=== PATIENT | male | born 1945 | race Caucasian/White ===

== ENCOUNTER 2017-02-19 09:21 | Emergency (ER) | payer MEDICARE, OTHER ==
[2017-02-19 09:31] VITALS: BP 147/78
[2017-02-19] MEDS ORDERED: DIPHTH,PERTUSS(ACELL),TET VAC 0.5 ML VIAL IM ONE ×2 (09:37→09:38)
--- NOTE | 2017-02-19 10:07 | ERNOTE ---
Upper Extremity HPI - Narrative Date of Service: 02/19/17 - General Extremities Pain Location: forearm: left Time Seen by Provider: 02/19/17 09:34 Source: patient Exam Limitations: no limitations - Immun/Allergies/Home Medications Immunizations: IMMUNIZATION HX Immunizations Up to Date Yes History of Influenza Vaccine Yes Hx Pneumococcal Vaccination Yes Allergies/Adverse Reactions: Allergies Allergy/AdvReac Type Severity Reaction Status Date / Time Penicillins AdvReac Mild "INTOLERANC Verified 10/16/15 08:53 E" Home Medications: HOME MEDICATIONS Aspirin [Aspirin Enteric Coated] 81 mg PO Q2D 06/17/15 [Last Taken Unknown] Insul NPH Hu Rec/Ins Rg Hu Rec [Novolin 70/30] 21 units SQ QPM 06/17/15 [Last Taken Unknown] Insul NPH Hu Rec/Ins Rg Hu Rec [Novolin 70/30] 22 units SQ QAM 06/17/15 [Last Taken Unknown] Multivitamins [Multivitamin [place]] 1 cap PO DAILY 06/17/15 [Last Taken Unknown] Pravastatin Sodium [Pravachol] 20 mg PO HS 06/17/15 [Last Taken Unknown] metFORMIN HCL [Glucophage Xr] 1,000 mg PO BID 06/17/15 [Last Taken Unknown] Lisinopril [Zestril] 20 mg PO DAILY 09/28/15 [Last Taken Unknown] Clopidogrel Bisulfate [Plavix] 75 mg PO DAILY 10/16/15 [Last Taken Unknown] - History of Present Illness Narrative: Patient presents to the ED for a bleeding wound on his left forearm. On he had a scab on his left arm that he scratched off, he put a bandaid on that spot and today took the bandaid off his arm and it pulled the skin off. he has a 2 cm area of skin that pulled off and he could not get this area to stop bleeding so he came in to the ED. He is holding pressure on the area and when he removes it it oozes blood. No laceration, just pulled the skin off from the bandaid adhesive. He is in need of a tetanus shot. No bone pain or trauma. He also relates that he has been dizzy for approx 1-1.5 years. this is not an acute complaint, he brings it up in conversation. he states no new dizziness, this is an on-going and chronic c/o for over 1 year. No CP or SOB, no acute focal N/T/W. Occurred: just prior to arrival Location of Incident: home Severity: mild Loss of Consciousness: Reports: no loss of consciousness Modifying Factors - (Improves): Reports: other - pressure stops the bleeding Modifying Factors - (Worsens): Reports: other - nothing Associated Symptoms: Denies: tingling, weakness Other Injuries: Reports: none Prior Treament: Denies: recently seen Review of Systems - Review of Systems Constitutional: Absent: fever Respiratory: Absent: shortness of breath Cardiology: Absent: chest pain Gastrointestinal/Abdominal: Absent: abdominal pain Neurological: Present: other - no new weakness - Patient's Past Medical History Patient History - Medical: Diabetes Type 2, Diabetes Type 2 Insulin Dependent Patient History - Cardiac/Respiratory: CVA/Stroke Patient History - Cancer: No Hx of Cancer Patient History - Surgical Procedures: Appendectomy, Other Patient History - Other: None - Family History Mother Family History - Medical: Family History - Cardiac/Respiratory: CHF Father Family History - Medical: , Diabetes Type 2 Family History - Cardiac/Respiratory: Pneumonia - Social History Living Situations: home Abuse History: No History of abuse Psych History: No pertinent hx Smoking Status: Never smoker Have you smoked in the past 12 months: Yes Do you dip or chew tobacco: No Alcohol Use: none Drug Use: none - Immunizations Immunizations Up to Date: Yes Hx Pneumococcal Vaccination: Yes History of Influenza Vaccine: Yes Physical Exam - Physical Exam General Appearance: Present: alert, no apparent distress Head Exam: Present: normal inspection, no evidence of injury Eye Exam: Normal inspection: bilateral Ears, Nose, Throat: Present: normal ENT inspection Neck: Present: normal inspection Respiratory: Present: no respiratory distress Cardiovascular/Chest: Present: regular rate, rhythm, normal peripheral pulses Back Exam: Present: normal range of motion Extremity Exam: Present: non-tender, other - no bone tenderness Neurological Exam: Present: alert, normal mood/affect, other - no acute unilateral focal motor or sensory deficits. Gait stable. Skin Exam: Present: normal color, warm/dry, other - there is a 2 cm area left forearm of skin avulsion from a bandaid adhesive. Oozing venous. no FB. ED Progress - Vital Signs Patient's Vital Signs:: I have reviewed the patient's vital signs. Vital Signs: Vital Signs 02/19/17 09:24 Temperature 36.8 C Pulse Rate 91 Respiratory 18 Rate Blood Pressure 147/78 O2 Sat by Pulse 98 Oximetry - Progress/Reassessment Chief Complaint: Upper Extremity Injury/Problem Progress Note-Subjective: 02/19/17 10:05 Wound bandage and cared for, bleeding controlled. dT updated. I offered him ED w/u for his chronic dizziness but he declines this and wishes to see his PCP instead. I feel this is very reasonable as it was not his primary complaint and has been going on for over a year. I discussed warning signs and reasons to return as well as the need for close f/u. Departure Clinical Impression: Skin avulsion - Departure Disposition: Home self-care Condition: Stable Additional Instructions: Wound care as directed. Return here if you change your mind about having any of the testing we discussed, develop signs of infection, bleeding or if your condition worsens or changes in any way. Call Dr Villa office Tuesday to be seen for a re-check. If you have any difficulty being seen call back here for assistance. Referrals: Sandra Hall MD [Primary Care Provider] -
== END 2017-02-19 10:00 | disposition home or self-care (01) ==
LOC: ER 09:21
DX: S51.802A Unspecified open wound of left forearm, initial encounter (principal); Z23 Encounter for immunization

== ENCOUNTER 2017-03-04 19:21 | Emergency (ER) | payer MEDICARE, OTHER ==
[2017-03-04 19:44] VITALS: BP 140/64
== END 2017-03-04 19:45 | disposition home or self-care (01) ==
LOC: ER 19:21
DX: Z13.6 Encounter for screening for cardiovascular disorders (principal)